=== PATIENT | female | born 1965 | race American Indian/Alaskan Native ===

== ENCOUNTER 2016-11-05 20:45 | Emergency (ER) | payer MEDICAID ==
[2016-11-05 20:45] VITALS: BMI 45.7
[2016-11-05 21:13] VITALS: TEMP 98; O2SAT 99
[2016-11-05] MEDS ORDERED: diaZEpam 10 mg/2 ml Inj IVP ONE (22:20)
[2016-11-05] MEDS ORDERED: Morphine 4 mg/ml ISec IVP STA (22:20)
--- NOTE | 2016-11-05 22:51 | ED PDOC ---
Arrival/HPI - General Chief Complaint: Lower Extremity Problem/Injury Time Seen by Provider: 11/05/16 22:06 Historian: Patient - History of Present Illness Narrative History of Present Illness (Text): 11/05/16 22:47 Ary Prieto is a 51 year old female, with a history of diabetes on metformin, presents to the emergency department complaining of pain to the right leg since today morning. States that pain starts in the right foot which radiates up the leg. Describes quality of pain as "sharp, contraction like pain" which has worsened throughout the day. Denies any trauma to the area or history of DVT. No swelling or joint pain. Denies any fever, chills, chest pain, difficulty breathing, nausea, vomiting, diarrhea, urinary symptoms, or any other complaints at this time. Time/Duration: Other (today morning ) Symptom Onset: Gradual Symptom Course: Worsening Severity Level: Mild Activities at Onset: Light Past Medical History - Provider Review Nursing Documentation Reviewed: Yes - Infectious Disease Hx of Infectious Diseases: None - Tetanus Immunization Tetanus Immunization: Unknown - Reproductive Menopause: No - Cardiac Hx Cardiac Disorders: Yes Hx Hypertension: Yes - Pulmonary Hx Respiratory Disorders: Yes Hx Asthma: Yes - Neurological Hx Neurological Disorder: No Hx Alzheimer's Disease: No HX Cerebrovascular Accident: No Hx Dementia: No Hx Dizziness: No Hx Meningitis: No Hx Migraine: No Hx Parkinson's Disease: No Hx Seizures: No Hx Transient Ischemic Attacks (TIA): No - HEENT Hx HEENT Disorder: Yes (wears glasses) Other/Comment: occassional ringing in the ears. Occassional pain in the right ear. - Renal Hx Renal Disorder: No - Endocrine/Metabolic Hx Endocrine Disorders: Yes Hx Adrenal Cancer: No Hx Diabetes Mellitus Type 2: Yes Hx Hyperthyroidism: Yes - Hematological/Oncological Hx Blood Disorders: Yes Hx Anemia: Yes (post c section 2004) - Integumentary Hx Dermatological Disorder: No Hx Basal Cell Carcinoma: No Hx Eczema: No Hx Melanoma: No Hx Psoriasis: No Hx Squamous Cell Carcinoma: No - Musculoskeletal/Rheumatological Hx Musculoskeletal Disorders: No Hx Arthritis: No Hx Back Pain: No Hx Degenerative Joint Disease: No Hx Falls: No Hx Fractures: No Hx Gout: No Hx Herniated Disk: No Hx Myasthenia Gravis: No Hx Osteoarthritis: No Hx Osteomyelitis: No Hx Osteoporosis: No Hx Rhabdomyolysis: No Hx Spinal Stenosis: No Hx Unsteady Gait: No - Gastrointestinal Hx Gastrointestinal Disorders: Yes Hx Gastroesophageal Reflux: Yes - Genitourinary/Gynecological Hx Genitourinary Disorders: No Hx Hematuria: No Hx Incontinence: No Hx Prostate Problems: No Hx Sexually Transmitted Diseases: No Hx Urinary Tract Infection: No - Psychiatric Hx Psychophysiologic Disorder: Yes Hx Anxiety: Yes Hx Substance Use: No - Surgical History Hx Amputation: No Hx Appendectomy: No Hx Cardiac Catheterization: No Hx Cholecystectomy: No Hx Coronary Stent: No Hx Gastric Bypass Surgery: No Hx Hysterectomy: No Hx Inguinal Hernia Repair: No Hx Joint Replacement: No Hx Kidney Transplant: No Hx Liver Transplant: No Hx Mastectomy: No Hx Musculoskeletal Surgery: No Hx Open Heart Surgery: No Hx Orthopedic Surgery: No Hx Splenectomy: No Hx Valve Replacement: No - Anesthesia Hx Anesthesia Reactions: No Hx Malignant Hyperthermia: No - Suicidal Assessment Feels Threatened In Home Enviroment: No Family/Social History - Physician Review Nursing Documentation Reviewed: Yes Family/Social History: No Known Family HX Smoking Status: Never Smoked Hx Alcohol Use: No Hx Substance Use: No Hx Substance Use Treatment: No Allergies/Home Meds Allergies/Adverse Reactions: Allergies No Known Allergies Allergy (Verified 11/05/16 21:13) Home Medications: Home Meds Medication Instructions Recorded Confirmed Furosemide [Lasix] 40 mg PO DAILY 04/13/16 11/05/16 Levothyroxine [Synthroid] 88 mcg PO DAILY 04/13/16 11/05/16 Metoprolol Tartrate [Lopressor] 50 mg PO BID 04/13/16 11/05/16 amLODIPine [Norvasc] 10 mg PO DAILY 04/13/16 11/05/16 metFORMIN [glucOPHAGE] 1,000 mg PO BID 04/13/16 11/05/16 Potassium Gluconate [Potassium] 10 meq PO DAILY 11/05/16 11/05/16 Review of Systems - Physician Review All systems were reviewed & negative as marked: Yes - Review of Systems Constitutional: Normal. absent: Fatigue, Fevers Respiratory: Normal. absent: SOB, Cough, Sputum Cardiovascular: Normal. absent: Chest Pain, Palpitations Gastrointestinal: Normal. absent: Abdominal Pain, Diarrhea, Nausea, Vomiting Genitourinary Female: Normal Musculoskeletal: Other (right leg pain ) Neurological: Normal Psychiatric: Normal Physical Exam Vital Signs Reviewed: Yes Vital Signs Temp Pulse Resp BP Pulse Ox 11/05/16 21:07 98 F 80 18 149/79 99 Temperature: Afebrile Blood Pressure: Normal Pulse: Regular Respiratory Rate: Normal Appearance: Positive for: Well-Appearing, Non-Toxic, Comfortable Pain Distress: None Mental Status: Positive for: Alert and Oriented X 3 - Systems Exam Head: Present: Atraumatic, Normocephalic Pupils: Present: PERRL Conjunctiva: Present: Normal Mouth: Present: Moist Mucous Membranes Neck: Present: Normal Range of Motion Respiratory/Chest: Present: Clear to Auscultation, Good Air Exchange. No: Respiratory Distress, Accessory Muscle Use Cardiovascular: Present: Regular Rate and Rhythm, Normal S1, S2. No: Murmurs Abdomen: Present: Normal Bowel Sounds. No: Tenderness, Distention, Peritoneal Signs Back: Present: Normal Inspection Upper Extremity: Present: Normal Inspection. No: Cyanosis, Edema Lower Extremity: Present: NORMAL PULSES, Normal ROM, Tenderness (right thigh ), Neurovascularly Intact, Capillary Refill < 2 s. No: Edema, CALF TENDERNESS, Swelling, Erythema, Temperature Abnormalties Neurological: Present: GCS=15, CN II-XII Intact, Speech Normal, Motor Func Grossly Intact, Normal Sensory Function Skin: Present: Warm, Dry, Normal Color. No: Rashes Psychiatric: Present: Alert, Oriented x 3, Normal Insight, Normal Concentration Medical Decision Making ED Course and Treatment: 11/05/16 22:52 Impression: A 51 year old female who presents to the emergency department complaining of right leg pain since today morning. R/o DVT, consider DM neuropathy vs muscle spasm. Plan: -- Labs -- Valium -- Morphine -- Xofran -- LE doppler -- Reassess and disposition Progress Notes: EKG: NSR at 69 bpm, (-) acute ST changes, compared to prior EKGs. US duplex RLE: (-) DVT as per US tech. Labs reviewed, K is noted to be 3.2. KCL 40meq PO ordered. The rest of the labs are wnl. Diagnostic results d/w the patient in great detail. Patient states that she is on a diuretic which decreases her Km therefore she takes supplements at home. Recently her pmd told her that her K is running high, was advised to take her supplement every other day. Patient advised that she is likely having the following symptoms to the the sudden decrease in her serum K. On reevaluation, patient continues to c/o R thigh pain, she attempted to stand however could not secondary to pain. Given another dose of morphine 4mg IV, zofran 4 mg IV, and Kcl 40 mq PO. Based on history, exam and diagnostic results plan will be for outpatient follow -up. Patient states she fully agrees with and understands discharge instructions. States that she agrees with the plan and disposition. Verbalized and repeated discharge instructions and plan. I have given the patient opportunity to ask any additional questions. Follow up with primary care physician in 1-2 days without fail. Return to the emergency room at any time for any new or worsening symptoms. - Lab Interpretations Lab Results: 11/05/16 22:59 11/05/16 22:59 Lab Results 11/05/16 22:59: Sodium 137, Potassium 3.2 L, Chloride 102, Carbon Dioxide 26, Anion Gap 12, BUN 13, Creatinine 0.6, Est GFR ( Amer) > 60, Est GFR (Non- Af Amer) > 60, Random Glucose 107, Calcium 9.3, Total Bilirubin 0.5, AST 22, ALT 29, Alkaline Phosphatase 73, Total Creatine Kinase 95, Total Protein 8.0, Albumin 4.2, Globulin 3.7, Albumin/Globulin Ratio 1.1 11/05/16 22:59: PT 10.7, INR 0.99, APTT 31.0 H 11/05/16 22:59: WBC 6.6 D, RBC 4.44, Hgb 12.5, Hct 37.6, MCV 84.7, MCH 28.2, MCHC 33.2, RDW 14.2, Plt Count 242, MPV 10.6, Gran % 70.5 H, Lymph % (Auto) 23.5 , [place] % (Auto) 5.2, Eos % (Auto) 0.6 L, Baso % (Auto) 0.2, Gran # 4.63, Lymph # 1.5, Sequoyah # 0.3, Eos # 0.0, Baso # 0.01 - RAD Interpretation Radiology Orders: 11/05/16 22:19 DUPLEX LOWER EXTRM VEIN RIGHT [US] Stat - Medication Orders Current Medication Orders: Potassium Chloride (Potassium Chloride 10 Meq/100 Ml) 10 meq in 100 mls @ 100 mls/hr IVPB Q2H [place] Stop: 11/06/16 04:14 Discontinued Medications Diazepam (Valium) 5 mg IVP ONCE ONE PRN Reason: Protocol Stop: 11/05/16 22:21 Last Admin: 11/05/16 23:16 Dose: 5 mg Morphine Sulfate (Morphine) 4 mg IVP STAT STA Stop: 11/05/16 22:21 Last Admin: 11/05/16 23:17 Dose: 4 mg Morphine Sulfate (Morphine) 4 mg IVP STAT STA Stop: 11/06/16 01:08 Last Admin: 11/06/16 02:07 Dose: 4 mg Ondansetron HCl (Zofran Inj) 4 mg IVP STAT STA Stop: 11/05/16 22:22 Last Admin: 11/05/16 23:16 Dose: 4 mg Ondansetron HCl (Zofran Inj) 4 mg IVP STAT STA Stop: 11/06/16 01:08 Potassium Chloride (Potassium Chloride Oral Soln) 40 meq PO STAT STA Stop: 11/06/16 00:38 Last Admin: 11/06/16 02:05 Dose: 40 meq - 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 Disposition/Present on Arrival - Present on Arrival Any Indicators Present on Arrival: No History of DVT/PE: No History of Uncontrolled Diabetes: No Urinary Catheter: No History of Decub. Ulcer: No History Surgical Site Infection Following: None - Disposition Have Diagnosis and Disposition been Completed?: Yes Diagnosis: Leg pain, right, Hypokalemia Disposition: HOME/ ROUTINE Disposition Time: 02:00 Patient Plan: Discharge Patient Problems: Current Active Problems Problem Status Onset Hypokalemia Acute Leg pain, right Acute Condition: GOOD Discharge Instructions (ExitCare): Hypokalemia (ED), Leg Cramps (ED) Print Language: IRISH Referrals: Chery De La Rosa DO [Primary Care Provider] - Follow up with primary Forms: WORK NOTE
[2016-11-05 23:05] LABS: ADD MANUAL DIFF? NO
[2016-11-05 23:15] LABS: BASO # 0.01 K/mm3 (0.0-2.0); BASO % 0.2 % (0.0-3.0); EOS % 0.6 % (1.5-5.0); GRAN # 4.63 (1.4-6.5); GRAN % 70.5 % (50.0-68.0); HEMATOCRIT 37.6 % (36.0-48.0); LYMPH # 1.5 (1.2-3.4); LYMPH % 23.5 % (22.0-35.0); MEAN CELL VOLUME 84.7 fL (80.0-105.0); MEAN CORPUSCULAR HEMOGLOBIN 28.2 pg (25.0-35.0); MEAN CORPUSCULAR HGB CONC 33.2 g/dl (31.0-37.0); MEAN PLATELET VOLUME 10.6 fl (7.0-11.0); MONO # 0.3 (0.1-0.6); MONO % 5.2 % (1.0-6.0); PLATELET COUNT 242 10^3/uL (120.0-450.0); RED CELL DISTRIBUTION WIDTH 14.2 % (11.5-14.5); WHITE BLOOD COUNT 6.6 10^3/ul (4.5-11.0)
[2016-11-05 23:17] LABS: ALB/GLOB RATIO 1.1 (1.1-1.8); ALKALINE PHOSPHATASE 73 U/L (38-133); ALT/SGPT 29 U/L (7-56); AST/SGOT 22 U/L (15-39); BILIRUBIN,TOTAL 0.5 mg/dL (0.2-1.3); BLOOD UREA NITROGEN 13 mg/dL (7-21); CALCIUM 9.3 mg/dL (8.4-10.5); CARBON DIOXIDE 26 mmol/L (21-33); CHLORIDE 102 mmol/L (98-107); GFR AFRICAN-AMERICAN > 60; GLUCOSE,RANDOM 107 mg/dL (70-110); POTASSIUM 3.2 mmol/L (3.6-5.0); SODIUM 137 mmol/L (132-148)
[2016-11-05 23:19] LABS: INR 0.99 (0.93-1.08)
[2016-11-06] MEDS ORDERED: Potassium Chloride 20 mEq/15 ml LIQ UD PO STA ×2 (00:37→02:23)
[2016-11-06] MEDS ORDERED: Morphine 4 mg/ml ISec IVP STA (01:07)
[2016-11-06 03:06] VITALS: RESP 16
[2016-11-06 03:29] VITALS: BP 134/86; PULSE 76
--- NOTE | 2016-11-06 13:49 | CARD ---
APPROVED REPORT EKG Measurement Heart [id number] <Conclusion> Normal sinus rhythm Nonspecific T wave abnormality
--- NOTE | 2016-11-06 17:52 | US ---
PROCEDURE: Right lower extremity venous duplex Doppler. HISTORY: pain, r/o DVT COMPARISON: None available. TECHNIQUE: Common femoral, superficial femoral, popliteal and posterior tibial veins were evaluated. Flow was assessed with color Doppler, compressibility, assessment of phasic flow and augmentation response. FINDINGS: COMMON FEMORAL VEIN: Normal. SUPERFICIAL FEMORAL VEIN: Normal. POPLITEAL VEIN: Normal. POSTERIOR TIBIAL VEIN: Normal. OTHER FINDINGS: None. IMPRESSION: No evidence of deep venous thrombosis in the right lower extremity.
== END 2016-11-06 03:55 | disposition home or self-care (01) ==
LOC: ED 20:45
DX: M79.604 Pain in right leg (principal); E87.6 Hypokalemia; E11.9 Type 2 diabetes mellitus without complications; I10 Essential (primary) hypertension
CPT/HCPCS: 80053; 82550; 85025; 85610; 85730; 93005; 93971; 96374; 96375; 96376; 99284; J2270; J2405; J3360